=== PATIENT | male | born 1995 | race African-American/Black ===

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

== ENCOUNTER 2017-09-27 20:37 | Emergency (ER) | payer BC ==
--- NOTE | 2017-09-27 20:42 | PDOC ---
Rapid Medical Evaluation Time Seen by Provider: 09/27/17 20:39 Medical Evaluation: Allergies Allergy/AdvReac Type Severity Reaction Status Date / Time No Known Allergies Allergy Verified 05/21/16 15:02 09/27/17 20:40 I have performed a brief in-person evaluation of the patient. The patient presents with a chief complaint of : injury to lower lip while playing basket ball today. States he was accidentally elbowed during basketball. Unsure tetanus status Pertinent physical exam findings. NAD HEENT: laceration to mid lower lip, abrasion to left eye unlabored breathing I have ordered the following boostrix This patient will proceed to the ED for further evaluation.
[2017-09-27 20:46] VITALS: BP 148/89; PULSE 93; TEMP 99.4; BMI 39.9
[2017-09-27] MEDS ORDERED: DIPHTH,PERTUSS(ACELL),TET 0.5 ML DISP.SYRIN IM ONE (20:46)
--- NOTE | 2017-09-27 21:48 | PDOC ---
History of Present Illness - General Chief Complaint: Injury Stated Complaint: INJURY Time Seen by Provider: 09/27/17 20:39 - History of Present Illness Initial Comments: Healthy 22-year-old male elbowed in the lower lip while playing basketball earlier this evening. No loss of consciousness no headache no nausea or vomiting. Only significant past medical history of seasonal ALLERGIES for which he takes Claritin. 09/27/17 21:43 Past History - Past Medical History Allergies/Adverse Reactions: Allergies Allergy/AdvReac Type Severity Reaction Status Date / Time No Known Allergies Allergy Verified 09/27/17 20:41 Home Medications: Ambulatory Orders NK [No Known Home Medication] 09/27/17 Anemia: Yes Cardiac Disorders: Yes (Mitral valve prolapse) COPD: No - Immunization History Immunization Up to Date: Yes - Suicide/Smoking/Psychosocial Hx Smoking History: Never smoked Have you smoked in the past 12 months: No Information on smoking cessation initiated: No Hx Alcohol Use: No Drug/Substance Use Hx: No Substance Use Type: None Review of Systems - Review of Systems Constitutional: Yes: See HPI All Other Systems: Reviewed and Negative *Physical Exam - Vital Signs Last Vital Signs Temp Pulse Resp BP Pulse Ox 99.4 F 93 H 22 148/89 99 09/27/17 20:42 09/27/17 20:42 09/27/17 20:42 09/27/17 20:42 09/27/17 20:42 - Physical Exam Comments: There is a stellate laceration in the middle of the lower lip invading part of the mucosa. The laceration is T-shaped subcentimeter in length and width. Teeth are intact. 09/27/17 21:44 Procedures - Laceration/Wound Repair Lower Lip Wound Length: to 2.5 cm Wound Explored: clean Wound's Depth, Shape: stellate Irrigated w/ Saline: Yes Betadine Prep: No Anesthesia: 1% Lidocaine Wound Debrided: minimal Wound Repaired With: Sutures Suture Size/Type: 5:0, other Number of Sutures: 6 Sterile Dressing Applied: No ED Treatment Course - Medications Given in the ED: ED Medications Discontinued Medications Generic Name Dose Route Start Last Admin Trade Name Freq PRN Reason Stop Dose Admin Diphtheria/Tetanus/Acell Pertussis 0.5 ml 09/27/17 20:46 09/27/17 20:59 Boostrix - IM 09/27/17 20:47 0.5 ml .ONCE ONE Administration Medical Decision Making - Medical Decision Making The area was anesthetized with 3 mL of 1% lidocaine without epinephrine. The wound was explored to its base in a bloodless field. There was no foreign body identified. The stellate T-shaped edges were approximated using 5-0 in a simple interrupted fashion this was tolerated well. 09/27/17 21:45 *DC/Admit/Observation/Transfer Diagnosis at time of Disposition: Lip laceration - Discharge Dispostion Disposition: HOME Condition at time of disposition: Stable Decision to Admit order: No - Referrals - Patient Instructions Printed Discharge Instructions: DI for Laceration Repair Additional Instructions: Return to the emergency room if your symptoms worsen or your pain increases. The sutures are absorbable and do not require removal. You should file follow- up with your primary care doctor in the next 1-2 days for further evaluation and treatment options. - Post Discharge Activity
== END 2017-09-27 21:48 | disposition home or self-care (01) ==
LOC: JERFT 20:37
PROC: 0CQ13ZZ Repair Lower Lip, Percutaneous Approach (ICD-10-PCS; principal; 2017-09-27)
DX: S01.511A Laceration without foreign body of lip, initial encounter (principal); W51.XXXA Accidental striking against or bumped into by another person, initial encounter; Y93.67 Activity, basketball; Y92.310 Basketball court as the place of occurrence of the external cause; Y99.8 Other external cause status
CPT/HCPCS: 90715; 99281-25

== ENCOUNTER 2023-01-17 19:50 | Emergency (ER) | payer BC ==
[2023-01-17 20:08] VITALS: BP 181/107; PULSE 85; RESP 18; TEMP 98.2; BMI 35.9
== END 2023-01-17 22:42 | disposition left against medical advice (07) ==
LOC: JER 19:50 → JERFT 19:50 → JER 22:42
DX: Z53.9 Procedure and treatment not carried out, unspecified reason (principal)
CPT/HCPCS: 99281-25